=== PATIENT | female | born 1950 | race Caucasian/White ===

== ENCOUNTER 2016-07-12 20:19 | Observation (INO) ==
[2016-07-12 22:00] LABS: Basophils # 0.1 K/mcL (0.0-0.2); Basophils % 0.4 %; Eosinophils % 0.3 %; Hematocrit 49.4 % (35.3-44.9); Hemoglobin 16.6 g/dL (11.5-15.4); Immature Granulocytes % 0.3 % (0-4); Lymphocytes # 0.9 K/mcL (0.6-4.6); Lymphocytes % 7.8 %; Mean Corpuscular HGB Conc 33.6 g/dL (31.6-35.5); Mean Corpuscular Hemoglobin 28.2 pg (28.0-33.3); Mean Corpuscular Volume 83.9 fL (83.0-100.0); Mean Platelet Volume 10.4 fL (9.4-12.4); Monocytes # 0.6 K/mcL (0.0-1.3); Monocytes % 5.3 %; Neutrophils # 10.2 K/mcL (1.6-8.9); Platelet Count 184 K/mcL (140-400); Red Blood Count 5.89 M/mcL (3.82-4.97); Red Cell Distribution Width 13.1 % (11.5-14.5); Segmented Neutrophils % 85.9 %
[2016-07-12 22:12] LABS: Alanine Aminotransferase 31 Units/L (0-55); Albumin 4.3 g/dL (3.5-5.0); Albumin/Globulin Ratio 1.3 (1.1-2.2); Alkaline Phosphatase 78 Units/L (38-126); Aspartate Amino Transferase 28 Units/L (5-34); BUN/Creatinine Ratio 26 (6-26); Bilirubin,Direct 0.7 mg/dL (0.0-0.5); Bilirubin,Indirect 1.5 mg/dL (0.0-1.2); Bilirubin,Total 2.2 mg/dL (0.2-1.2); Blood Urea Nitrogen 22 mg/dL (7-20); Calcium 9.8 mg/dL (8.6-10.8); Carbon Dioxide 25 mEq/L (19-29); Chloride 104 mEq/L (98-109); Globulin 3.4 g/dL (2.4-3.5); Glucose 129 mg/dL (70-99); Lipase 23 Units/L (8-78); Osmolality,Calculated 295 (280-300); Sodium 140 mEq/L (136-145); Total Protein 7.7 g/dL (6.0-8.3); eGFR For African Americans > 60 (> 60); eGFR For Non-African Americans > 60 (> 60)
--- NOTE | 2016-07-12 22:22 | Emergency Department Note ---
Disposition Clinical Impression: Abdominal pain Qualifiers: Abdominal location: unspecified location Qualified Code(s): R10.9 - Unspecified abdominal pain Disposition: Still a Patient Referrals: Jana Barone CNP [Primary Care Provider] - Forms: Work/School Release, ED Satisfaction Letter Abdominal Pain HPI - General Chief Complaint: ED Abdominal Pain Stated Complaint: abdominal pain,vomiting Time Seen by Provider: 07/12/16 21:42 Source: patient Mode of arrival: ambulatory Limitations: no limitations Nursing Notes Reviewed: Yes Vital Signs Reviewed: Yes - History of Present Illness HPI Narrative: 66-year-old female who comes in complaining of severe epigastric pain radiating down into her abdomen. The patient states it started about 10 hours ago and is actually improving some now. Patient had a similar episode lasted about 4-5 hours about this 6 weeks ago. He was not evaluated for that. Pt Subjective Complaint: abdominal pain Onset (ago): hour(s) Consistency: constant Location: RUQ, LLQ Pain Severity: moderate, severe Pain Scale: 8 Quality: cramping, aching Radiation: none Migration to: no migration Improves with: nothing Worsens with: nothing - Related Data Home Medications Medication Instructions Recorded Confirmed Calcium Carbonate/Vitamin D3 1 tab PO DAILY 12/13/15 12/13/15 [Calcium 600 + Vit D Tablet] Lovastatin [Mevacor] 20 mg PO HS 12/13/15 12/13/15 Multivitamin [Multi-Day Vitamins] 1 tab PO DAILY 12/13/15 12/13/15 Vitamin E Acetate [Vitamin E] 400 unit PO DAILY 12/13/15 12/13/15 Allergies Allergy/AdvReac Type Severity Reaction Status Date / Time No Known Allergies Allergy Verified 07/12/16 21:00 Constitutional: Denies: fever, chills, weakness, weight change Eyes: Denies: eye pain, eye discharge, vision change ENT ED: Denies: ear pain, throat pain, dental pain, hearing loss, epistaxis, congestion, dysphagia Cardiovascular: Denies: chest pain, palpitations, dyspnea on exertion, edema, syncope Respiratory: Denies: cough, dyspnea, wheezes, hemoptysis, stridor Gastrointestinal: Reports: abdominal pain. Denies: nausea, vomiting, diarrhea, constipation, hematemesis, melena, hematochezia Genitourinary: Denies: dysuria, frequency, hematuria, discharge Musculoskeletal: Denies: back pain, neck pain, arthralgia, myalgia Integumentary: Denies: rash, abrasion, lesions Neurological: Denies: headache, weakness, numbness, paresthesias, confusion, abnormal gait, vertigo Psychiatric: Denies: anxiety, depression, suicidal thoughts, homicidal thoughts , auditory hallucinations, visual hallucinations Endocrine: Denies: fatigue Hematological/Lymphatic: Denies: easy bleeding, easy bruising Allergic/Immunologic: Denies: facial swelling, urticaria Abdominal Pain PMH - Past Medical History Medical history: Reports: cancer, hypertension, other Female Surgical History: Reports: hysterectomy, other Psychiatric history: Reports: no psych history - Social History Smoking status: Never smoker Alcohol use: Reports: none Drug use: Reports: none Physical Exam - General Limitations: no limitations General appearance: alert - Head Head exam: atraumatic, normocephalic, normal inspection - Eye Eye exam: Present: normal appearance, PERRL, EOMI - ENT ENT exam: normal exam, normal oropharynx, mucous membranes moist - Neck Neck exam: Present: normal inspection, full ROM, trachea midline - Chest Chest inspection: Present: normal inspection, symmetric chest wall rise - Respiratory Respiratory exam: Present: normal lung sounds bilaterally - Cardiovascular Cardiovascular exam: Present: regular rate, normal rhythm, normal heart sounds - Abdominal Exam Abdominal exam: Present: soft, tenderness. Absent: distention, guarding, rebound, rigidity, pulsatile mass Abdominal tenderness: Present: diffuse, mild - Extremities Exam Extremities exam: Present: normal inspection, full ROM. Absent: tenderness, pedal edema - Expanded Lower Extremity Exam Neurovascular/Tendon exam: Absent: motor deficit, sensory deficit, tendon deficit Gait: observed and normal - Back Exam Back exam: Present: normal inspection, full ROM. Absent: tenderness - Neurological Exam Neurological exam: Present: alert, oriented X3 - Psychiatric Psychiatric exam: Present: normal affect, normal mood - Skin Skin exam: Present: warm, dry, intact, normal color Course Vital Signs Temperature 98.4 F 07/12/16 20:55 Pulse Rate 86 07/12/16 20:55 Respiratory Rate 16 07/12/16 20:55 Blood Pressure 160/94 07/12/16 20:55 O2 Sat by Pulse Oximetry 93 07/12/16 20:55 Temperature 98.4 F 07/12/16 20:55 Pulse Rate 86 07/12/16 20:55 Respiratory Rate 16 07/12/16 20:55 Blood Pressure 160/94 07/12/16 20:55 O2 Sat by Pulse Oximetry 93 07/12/16 20:55 Oxygen Delivery Oxygen Delivery Room Air Abdominal Pain - Lab Data Result diagrams: 07/12/16 21:52 07/12/16 21:52 Lab Results 07/12/16 07/12/16 Range/Units 21:52 21:52 WBC 11.9 H (4.3-11.1) K/mcL RBC 5.89 H (3.82-4.97) M/mcL Hgb 16.6 H (11.5-15.4) g/dL Hct 49.4 H (35.3-44.9) % MCV 83.9 (83.0-100.0) fL MCH 28.2 (28.0-33.3) pg MCHC 33.6 (31.6-35.5) g/dL RDW 13.1 (11.5-14.5) % Plt Count 184 (140-400) K/mcL MPV 10.4 (9.4-12.4) fL Immature Gran % 0.3 (0-4) % Seg Neutrophils % 85.9 % Lymphocytes % 7.8 % Monocytes % 5.3 % Eosinophils % 0.3 % Basophils % 0.4 % Neutrophils # 10.2 H (1.6-8.9) K/mcL Lymphocytes # 0.9 (0.6-4.6) K/mcL Monocytes # 0.6 (0.0-1.3) K/mcL Eosinophils # 0.0 (0.0-0.6) K/mcL Basophils # 0.1 (0.0-0.2) K/mcL Sodium 140 (136-145) mEq/L Potassium 4.0 (3.5-4.5) mEq/L Chloride 104 (98-109) mEq/L Carbon Dioxide 25 (19-29) mEq/L BUN 22 H (7-20) mg/dL Creatinine 0.86 (0.57-1.11) mg/dL Est GFR ( Amer) > 60 (> 60) Est GFR (Non-Af Amer) > 60 (> 60) BUN/Creatinine Ratio 26 (6-26) Glucose 129 H (70-99) mg/dL Calculated Osmolality 295 (280-300) Calcium 9.8 (8.6-10.8) mg/dL Total Bilirubin 2.2 H (0.2-1.2) mg/dL Direct Bilirubin 0.7 H (0.0-0.5) mg/dL Indirect Bilirubin 1.5 H (0.0-1.2) mg/dL AST 28 (5-34) Units/L ALT 31 (0-55) Units/L Alkaline Phosphatase 78 (38-126) Units/L Serum Total Protein 7.7 (6.0-8.3) g/dL Albumin 4.3 (3.5-5.0) g/dL Globulin 3.4 (2.4-3.5) g/dL Albumin/Globulin Ratio 1.3 (1.1-2.2) Lipase 23 (8-78) Units/L S.B.A.R. - S.B.A.R. Recommendation: Recommendation based on pending studies, treatments, or consults S.B.A.R. Report Given to: Maxwell ArechigaBDannielleAAlyssia Repor Time: 23:00
[2016-07-12 22:28] LABS: Amylase 45 Units/L (25-125)
[2016-07-12 23:33] LABS: Bilirubin,Urine Negative (Negative); Blood,Urine Moderate (Negative); Clarity,Urine Cloudy (Clear); Color,Urine Yellow (Yellow); Glucose,Urine (UA) Normal (Normal); Ketones,Urine 40 mg/dL (Negative); Leukocyte Esterase,Urine Moderate (Negative); Nitrite,Urine Positive (Negative); Protein,Urine 30 mg/dL (Neg-Trace); Specific Gravity,Urine 1.022 (1.010-1.025); Urobilinogen,Urine Normal (Normal)
[2016-07-12 23:35] LABS: Bacteria,Urine Many per hpf (None-Few); Hyaline Casts,Urine Moderate per lpf (None-Few); Squamous Epithelial Cell,Urine Few per lpf (None-Few); WBC,Urine 15-30 per hpf (0-3)
[2016-07-12] MEDS ORDERED: Acetaminophen 325 MG TABLET PO ONE (23:37)
--- NOTE | 2016-07-12 23:47 | Emergency Department Note ---
Disposition Clinical Impression: Abdominal pain Qualifiers: Abdominal location: unspecified location Qualified Code(s): R10.9 - Unspecified abdominal pain Appendicitis Qualifiers: Appendicitis type: acute appendicitis Acute appendicitis type: unspecified acute appendicitis type Qualified Code(s): K35.80 - Unspecified acute appendicitis Disposition: Admitted As Inpatient Condition: Good Time of Disposition: 01:04 Abdominal Pain HPI - General Chief Complaint: ED Abdominal Pain Stated Complaint: abdominal pain,vomiting Time Seen by Provider: 07/12/16 21:42 Source: patient Mode of arrival: ambulatory - History of Present Illness Pt Subjective Complaint: abdominal pain Location: RUQ, LLQ Pain Severity: moderate, severe Pain Scale: 8 Quality: cramping, aching Migration to: no migration Improves with: nothing Worsens with: nothing - Related Data Home Medications Medication Instructions Recorded Confirmed Calcium Carbonate/Vitamin D3 1 tab PO DAILY 12/13/15 07/13/16 [Calcium 600 + Vit D Tablet] Lovastatin [Mevacor] 20 mg PO HS 12/13/15 07/13/16 Multivitamin [Multi-Day Vitamins] 1 tab PO DAILY 12/13/15 07/13/16 Vitamin E Acetate [Vitamin E] 400 unit PO DAILY 12/13/15 07/13/16 Allergies Allergy/AdvReac Type Severity Reaction Status Date / Time No Known Allergies Allergy Verified 07/12/16 21:00 Constitutional: Denies: fever, chills, weakness, weight change Eyes: Denies: eye pain, eye discharge, vision change ENT ED: Denies: ear pain, throat pain, dental pain, hearing loss, epistaxis, congestion, dysphagia Cardiovascular: Denies: chest pain, palpitations, dyspnea on exertion, edema, syncope Respiratory: Denies: cough, dyspnea, wheezes, hemoptysis, stridor Gastrointestinal: Reports: abdominal pain. Denies: nausea, vomiting, diarrhea, constipation, hematemesis, melena, hematochezia Genitourinary: Denies: dysuria, frequency, hematuria, discharge Musculoskeletal: Denies: back pain, neck pain, arthralgia, myalgia Integumentary: Denies: rash, abrasion, lesions Neurological: Denies: headache, weakness, numbness, paresthesias, confusion, abnormal gait, vertigo Psychiatric: Denies: anxiety, depression, suicidal thoughts, homicidal thoughts , auditory hallucinations, visual hallucinations Endocrine: Denies: fatigue Hematological/Lymphatic: Denies: easy bleeding, easy bruising Allergic/Immunologic: Denies: facial swelling, urticaria Abdominal Pain PMH - Past Medical History Medical history: Reports: cancer, hypertension, other Female Surgical History: Reports: hysterectomy, other Psychiatric history: Reports: no psych history - Social History Smoking status: Never smoker Alcohol use: Reports: none Drug use: Reports: none Physical Exam - General Limitations: no limitations General appearance: alert Course Course Narrative: Patient initially seen by [facility] provider Dr. Garcia. Please see his earlier documentation for details and combine charts. I did discuss patient with Dr. Garcia. Patient had resented with abdominal pain. Dr. Garcia had ordered CT with contrast. Per Dr. Garcia, patient's pain had been improving and she has declined analgesics. - Reevaluation(s) Reevaluation #1: Patient seen and examined. She is in no acute distress, does not look toxic. She states again that her abdominal pain She describes a dull headache which she relates is being caused by the stress and IV placement. She had requested Tylenol however patient currently nothing by mouth. She had declined IV analgesics. CT has been ordered and is pending. Vitals within normal limits. Time: 23:47 - Consultations Consultation #1: Patient was discussed with on-call surgeon Dr. Bianchi, who advised admit to service, IV fluids, analgesics and antiemetics. Time: 01:01 Vital Signs Temperature 98.4 F 07/12/16 20:55 Pulse Rate 86 07/12/16 20:55 Respiratory Rate 16 07/12/16 20:55 Blood Pressure 160/94 07/12/16 20:55 O2 Sat by Pulse Oximetry 93 07/12/16 20:55 Temperature 98.4 F 07/13/16 06:54 Pulse Rate 72 07/13/16 06:54 Respiratory Rate 16 07/13/16 06:54 Blood Pressure 136/77 07/13/16 06:54 O2 Sat by Pulse Oximetry 93 07/13/16 06:54 Oxygen Delivery Oxygen Delivery Room Air Abdominal Pain - Lab Data Lab results reviewed: Yes I reviewed the patient's lab results. Result diagrams: 07/12/16 21:52 07/12/16 21:52 Lab Results 05/24/17 05/24/17 05/24/17 Range/Units 21:52 21:52 23:27 WBC 11.9 H (4.3-11.1) K/mcL RBC 5.89 H (3.82-4.97) M/mcL Hgb 16.6 H (11.5-15.4) g/dL Hct 49.4 H (35.3-44.9) % MCV 83.9 (83.0-100.0) fL MCH 28.2 (28.0-33.3) pg MCHC 33.6 (31.6-35.5) g/dL RDW 13.1 (11.5-14.5) % Plt Count 184 (140-400) K/mcL MPV 10.4 (9.4-12.4) fL Immature Gran % 0.3 (0-4) % Seg Neutrophils % 85.9 % Lymphocytes % 7.8 % Monocytes % 5.3 % Eosinophils % 0.3 % Basophils % 0.4 % Neutrophils # 10.2 H (1.6-8.9) K/mcL Lymphocytes # 0.9 (0.6-4.6) K/mcL Monocytes # 0.6 (0.0-1.3) K/mcL Eosinophils # 0.0 (0.0-0.6) K/mcL Basophils # 0.1 (0.0-0.2) K/mcL Sodium 140 (136-145) mEq/L Potassium 4.0 (3.5-4.5) mEq/L Chloride 104 (98-109) mEq/L Carbon Dioxide 25 (19-29) mEq/L BUN 22 H (7-20) mg/dL Creatinine 0.86 (0.57-1.11) mg/dL Est GFR ( Amer) > 60 (> 60) Est GFR (Non-Af Amer) > 60 (> 60) BUN/Creatinine Ratio 26 (6-26) Glucose 129 H (70-99) mg/dL Calculated Osmolality 295 (280-300) Calcium 9.8 (8.6-10.8) mg/dL Total Bilirubin 2.2 H (0.2-1.2) mg/dL Direct Bilirubin 0.7 H (0.0-0.5) mg/dL Indirect Bilirubin 1.5 H (0.0-1.2) mg/dL AST 28 (5-34) Units/L ALT 31 (0-55) Units/L Alkaline Phosphatase 78 (38-126) Units/L Serum Total Protein 7.7 (6.0-8.3) g/dL Albumin 4.3 (3.5-5.0) g/dL Globulin 3.4 (2.4-3.5) g/dL Albumin/Globulin Ratio 1.3 (1.1-2.2) Amylase 45 (25-125) Units/L Lipase 23 (8-78) Units/L Urine Color Yellow (Yellow) Urine Clarity Cloudy A (Clear) Urine pH 6.0 (5.0-8.0) pH Units Ur Specific [place] 1.022 (1.010-1.025) Urine Protein 30 H (Neg-Trace) mg/dL Urine Glucose (UA) Normal (Normal) mg/dL Urine Ketones 40 H (Negative) mg/dL Urine Blood Moderate H (Negative) Urine Nitrite Positive A (Negative) Urine Bilirubin Negative (Negative) Urine Urobilinogen Normal (Normal) mg/dL Ur Leukocyte Esterase Moderate H (Negative) Urine Microscopic RBC 5-15 H (0-3) per hpf Urine Microscopic WBC 15-30 H (0-3) per hpf Ur Squamous Epith Cells Few (None-Few) per lpf Urine Bacteria Many H (None-Few) per hpf Hyaline Casts Moderate H (None-Few) per lpf Ur Culture Indicated? YES A (NO) - Radiology Data Radiology results reviewed: Yes I reviewed the patient's radiology results.
[2016-07-13] MEDS ORDERED: Ondansetron 4 MG/2 ML VIAL IVP PRN ×3 (01:01→16:16)
[2016-07-13] MEDS ORDERED: *HR* Morphine 2 MG/ML SYRINGE IVP PRN (01:01)
[2016-07-13] MEDS ORDERED: 0.9 % Sodium Chloride 1,000 ML IVC ONE (01:03)
[2016-07-13] MEDS ORDERED: *HR* HYDROmorphone (PF) 1 MG/ML SYRINGE IVP PRN ×3 (02:18→16:16)
[2016-07-13] MEDS ORDERED: 0.9 % Sodium Chloride 1,000 ML IVC SCH ×2 (02:30→16:16)
--- NOTE | 2016-07-13 08:00 | General Surg History&Physical ---
<Mariah Smith - Last Filed: 07/13/16 14:09> Date of Encounter: 07/13/16 Time of Encounter: 08:00 Assessment and Plan (1) Appendicitis Status: Acute The assessment and plan as outlined above was discussed with the patient and/or family members who expressed understanding and agreement. All questions were answered. Patient had sudden onset of mid epigastric pain 8/10 cramping sharp with radiation to the periumbilical area that began at noon yesterday 07/12/16 and did not begin to subside until around 9 PM last night. Associated symptoms include bloated sensation, decreased appetite, nausea, one episode of vomiting nonbilious nonbloody. No previous episodes. CT scan demonstrated acute non complicated appendicitis. Patient may decide to postpone surgery and try conservative therapy instead with oral antibiotics. Will give 2 rounds of IV antibiotics prior to discharge if patient decides to postpone and to DC with oral abx for conservative management. Abdomen/Pelvis CT 07/12/16 23:45 IMPRESSION: 1. Acute uncomplicated appendicitis. 2. Diffuse hepatic steatosis. 3. Chronic appearing L3 vertebral body compression fracture. 4. Hysterectomy. On exam: Patient is pleasant and alert. Abdominal exam minimal tenderness to palpation mid epigastric/periumbilical region patient describes 2 out of 10 pain significantly improved from time of admission, no peritoneal signs/rebound/ rigidity/guarding. Vital signs stable. Nonfocal neuro exam. Leukocytosis with white blood cells at 11.9, elevated H&H at 16.6/49.4, BUN 22. Liver function enzymes within normal limits/unremarkable. Plan: Nothing by mouth IV fluids at 75 mL per hour IV antibiotics- Cipro 400 IV Q 12hr; Supportive care and pain control Incentive spirometer every 1 hour while awake PPI therapy daily Risks, benefits, alternatives, expected outcomes reviewed with the patient is agreement to proceed to the operating room with Dr. BIANCHI for laparoscopic appendectomy in the next 24 hours. Qualifiers: Appendicitis type: acute appendicitis Acute appendicitis type: unspecified acute appendicitis type Qualified Code(s): K35.80 - Unspecified acute appendicitis History of Present Illness Chief complaint: abdominal pain HPI: Ms. Marroquin is a 66 year old female with a past medical history of hyperlipidemia who describes a sudden onset of mid epigastric pain 8/10 cramping sharp with radiation to the periumbilical area that began at noon yesterday 07/12/16 and did not begin to subside until around 9 PM last night. Associated symptoms include bloated sensation, decreased appetite, nausea, one episode of vomiting nonbilious nonbloody. No previous episodes. Patient states she called her son who drove her to the urgent care around 5:00 where they gave her 2 Zofran as to dissolve in her mouth which she promptly vomited. Patient was then transferred to the emergency department for further evaluation. Today patient states that her pain is minimal at 2 out of 10. Patient describes that she has a [facility] her [facility] tomorrow at 11:00. Her family and friends will be flying in from across the country and patient would very much like to be there for this event. Last bowel movement 6 PM yesterday evening without blood or pus. Last meal at 11:30 AM 07/12/16. Has had a few sips of water that she spit out but did not swallow last night. Abdominal surgeries: Bladder surgery approximately 6 years ago Hysterectomy 20 years ago. Past Med Surg Social Fam HX - Past Medical History Medical history: cancer, hypertension, other Psychiatric history: no psych history - Past Surgical History Surgical History: hysterectomy - Social History Smoking Status: Never smoker Smokeless Tobacco Status: No Alcohol use: none Drug use: none - Family History Father Living Status: Hx Family Cardiac Disorders: Yes (heart disease, [place]) Hx Family Endocrine Disorder: Yes (DM) Mother Living Status: Hx Family Cancer: Yes Medications and Allergies Calcium Carbonate/Vitamin D3 [Calcium 600 + Vit D Tablet] 1 tab PO DAILY [History] Lovastatin [Mevacor] 20 mg PO HS 12/13/15 [History] Multivitamin [Multi-Day Vitamins] 1 tab PO DAILY 12/13/15 [History] Vitamin E Acetate [Vitamin E] 400 unit PO DAILY 12/13/15 [History] Docusate [Colace] 100 mg PO BID #30 capsule 07/13/16 [Rx] HYDROcodone/Acet 5/325 mg [[place] 5-325 mg] 1 tab PO Q6H PRN #30 tab 07/13/16 [Rx ] Ibuprofen [Motrin] 600 mg PO Q6HR #50 tab 07/13/16 [Rx] Allergies No Known Allergies Allergy (Verified 07/12/16 21:00) Review of Systems All systems PM: A 10-system review of systems was performed and is negative for pertinent findings except as documented above in the HPI. - Constitutional anorexia, no chills, no fever(s) - EENT Nose, mouth and throat: no dysphagia, no mouth pain, no neck mass, no neck pain , no throat swelling, no tongue swelling, no vertigo - Cardiovascular no chest pain, no diaphoresis, no dyspnea, no edema, no palpitations - Respiratory no cough, no wheezing - Gastrointestinal abdominal pain, bloating, cramping, nausea, vomiting, no coffee ground emesis, no constipation, no diarrhea, no dysphagia, no heartburn, no hematemesis, no hematochezia, no melena, no tenesmus - Genitourinary Genitourinary: no urinary hesitancy, no urinary urgency - Musculoskeletal no muscle weakness, no numbness, no tingling - Integumentary no lesions, no new lesions, no pruritus, no rash, no swelling, no jaundice - Neurological no behavioral changes, no lack of coordination, no syncope - Psychiatric no confusion, no difficulty concentrating, no irritability - Endocrine no cold intolerance, no fatigue, no flushing, no heat intolerance, no palpitations, no polyuria - Hematologic/Lymphatic no easy bleeding, no easy bruising - Allergic/Immunologic no tongue swelling, no throat swelling, no wheezing General Surgery Exam Initial Vital Signs Temp Pulse Resp BP Pulse Ox 98.4 F 86 16 160/94 93 07/12/16 20:55 07/12/16 20:55 07/12/16 20:55 07/12/16 20:55 07/12/16 20:55 - General physical appearance well developed, well nourished, no distress, moderate pain (2/10). negative: jaundice - Eyes PERRL, normal ocular movement - ENT normal pinna, normal nares, normal mucosa - Neck trachea midline, no venous distension - Respiratory normal expansion, normal respiratory effort, clear to auscultation - Cardiovascular Cardiovascular exam: Present: RRR, no murmurs/rubs/gallops. Absent: JVD - Abdomen Abdomen general surgery: Present: bowel sounds present, soft, tender Abdominal Tenderness: Present: epigastic - Integumentary Integumentary general surgery: Present: warm and dry, no abnormal pigmentation. Absent: diaphoresis, rash - Neurologic Present: CN 2-12 grossly intact, normal coordination, normal sensation, deep tendon reflexes - Musculoskeletal Present: normal gait, normal posture - Psychiatric Psychiatric general surgery: Present: A&Ox3, appropriate, speech is normal, memory intact Results - Labs 07/12/16 21:52 07/12/16 21:52 Abnormal lab results WBC 11.9 K/mcL (4.3-11.1) H 07/12/16 21:52 RBC 5.89 M/mcL (3.82-4.97) H 07/12/16 21:52 Hgb 16.6 g/dL (11.5-15.4) H 07/12/16 21:52 Hct 49.4 % (35.3-44.9) H 07/12/16 21:52 Neutrophils # 10.2 K/mcL (1.6-8.9) H 07/12/16 21:52 BUN 22 mg/dL (7-20) H 07/12/16 21:52 Glucose 129 mg/dL (70-99) H 07/12/16 21:52 Total Bilirubin 2.2 mg/dL (0.2-1.2) H 07/12/16 21:52 Direct Bilirubin 0.7 mg/dL (0.0-0.5) H 07/12/16 21:52 Indirect Bilirubin 1.5 mg/dL (0.0-1.2) H 07/12/16 21:52 Urine Clarity Cloudy (Clear) A 07/12/16 23:27 Urine Protein 30 mg/dL (Neg-Trace) H 07/12/16 23:27 Urine Ketones 40 mg/dL (Negative) H 07/12/16 23:27 Urine Blood Moderate (Negative) H 07/12/16 23:27 Urine Nitrite Positive (Negative) A 07/12/16 23:27 Ur Leukocyte Esterase Moderate (Negative) H 07/12/16 23:27 Urine Microscopic RBC 5-15 per hpf (0-3) H 07/12/16 23:27 Urine Microscopic WBC 15-30 per hpf (0-3) H 07/12/16 23:27 Urine Bacteria Many per hpf (None-Few) H 07/12/16 23:27 Hyaline Casts Moderate per lpf (None-Few) H 07/12/16 23:27 Ur Culture Indicated? YES (NO) A 07/12/16 23:27 All other labs normal. - Imaging CT scan - abdomen: report reviewed, image reviewed CT scan - pelvis: report reviewed, image reviewed <Marin Bianchi E - Last Filed: 07/14/16 08:37> Date of Encounter: 07/14/16 Assessment and Plan (1) Appendicitis Status: Resolved The assessment and plan as outlined above was discussed with the patient and/or family members who expressed understanding and agreement. All questions were answered. The patient was seen with the resident. Her exam was consistent with right lower quadrant tenderness which correlated with the CT findings of appendicitis. We discussed the risks, benefits, and expected outcomes of conservative management with antibiotics versus surgery. She has elected to undergo surgery. We will plan to proceed to the operating room at the earliest convenience. Qualifiers: Appendicitis type: acute appendicitis Acute appendicitis type: unspecified acute appendicitis type Qualified Code(s): K35.80 - Unspecified acute appendicitis History of Present Illness HPI: Ms. Marroquin is a 66 year old female Review of Systems All systems PM: A 10-system review of systems was performed and is negative for pertinent findings except as documented above in the HPI. General Surgery Exam Initial Vital Signs Temp Pulse Resp BP Pulse Ox 98.4 F 86 16 160/94 93 07/12/16 20:55 07/12/16 20:55 07/12/16 20:55 07/12/16 20:55 07/12/16 20:55 Results - Labs 07/12/16 21:52 07/12/16 21:52 Abnormal lab results WBC 11.9 K/mcL (4.3-11.1) H 07/12/16 21:52 RBC 5.89 M/mcL (3.82-4.97) H 07/12/16 21:52 Hgb 16.6 g/dL (11.5-15.4) H 07/12/16 21:52 Hct 49.4 % (35.3-44.9) H 07/12/16 21:52 Neutrophils # 10.2 K/mcL (1.6-8.9) H 07/12/16 21:52 BUN 22 mg/dL (7-20) H 07/12/16 21:52 Glucose 129 mg/dL (70-99) H 07/12/16 21:52 Total Bilirubin 2.2 mg/dL (0.2-1.2) H 07/12/16 21:52 Direct Bilirubin 0.7 mg/dL (0.0-0.5) H 07/12/16 21:52 Indirect Bilirubin 1.5 mg/dL (0.0-1.2) H 07/12/16 21:52 Urine Clarity Cloudy (Clear) A 07/12/16 23: Urine Protein 30 mg/dL (Neg-Trace) H 07/12/16 23:27 Urine Ketones 40 mg/dL (Negative) H 07/12/16 23:27 Urine Blood Moderate (Negative) H 07/12/16 23:27 Urine Nitrite Positive (Negative) A 07/12/16 23:27 Ur Leukocyte Esterase Moderate (Negative) H 07/12/16 23:27 Urine Microscopic RBC 5-15 per hpf (0-3) H 07/12/16 23:27 Urine Microscopic WBC 15-30 per hpf (0-3) H 07/12/16 23:27 Urine Bacteria Many per hpf (None-Few) H 07/12/16 23:27 Hyaline Casts Moderate per lpf (None-Few) H 07/12/16 23:27 Ur Culture Indicated? YES (NO) A 07/12/16 23:27 All other labs normal.
[2016-07-13] MEDS ORDERED: MetroNIDAZOLE 500 MG/100 ML 500 MG/100 ML BAG IVPB SCH ×2 (10:00→18:00)
--- NOTE | 2016-07-13 12:58 | Anesthesia Evaluation PreOp ---
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: Denies Any Significant HX Other Medical History: Other (had skin cancer left ear) Anesthesia History: No Prior Anesthetic Complications, Past Anesthesia (JAQUAN) : No Alcohol Use: none Drug use: none Medications and Allergies Calcium Carbonate/Vitamin D3 [Calcium 600 + Vit D Tablet] 1 tab PO DAILY [History] Lovastatin [Mevacor] 20 mg PO HS 12/13/15 [History] Multivitamin [Multi-Day Vitamins] 1 tab PO DAILY 12/13/15 [History] Vitamin E Acetate [Vitamin E] 400 unit PO DAILY 12/13/15 [History] Allergies No Known Allergies Allergy (Verified 07/12/16 21:00) - Meds/Allergy Pre-op Review Medications Reviewed: Yes Allergies Reviewed: Yes Beta Blockers on Current Med List: No Anesthesia Results - Labs 07/12/16 21:52 07/12/16 21:52 Anesthesia Exam Selected Entries 07/13/16 10:51 Temperature 98.2 F Pulse Rate 77 Respiratory Rate 14 Blood Pressure 121/77 O2 Sat by Pulse Oximetry 93 Weight: 77kg NPO (# of Hours): >24 Pain Scale: 0 Pain Scale Used: Numeric (1 - 10) - HEENT Pupil (Motor): EOMI Mallampati: II Teeth: Normal Oral Opening: Greater than 3 - SPECIAL EDUCATION SCIENCE TEACHER LOC: Oriented SPECIAL EDUCATION SCIENCE TEACHER Motor: Normal RUE, Normal LUE, Normal RLE, Normal LLE, Normal Face SPECIAL EDUCATION SCIENCE TEACHER Sensory: Normal: RUE, LUE, RLE, LLE, Face - Cardiac Rhythm: Regular Murmur: None - Pulmonary Respiratory Effort: Symmetrical Anesthesia Assess/Plan ASA Score: 2 Modified Paterson Scale for Level of Consciousness: Cooperative, oriented, and tranquil Anesthetic Plan: General Monitoring Plan: Standard Monitors Recovery Plan: PACU (Discussed GA with patient questions answered and agrees to proceed.)
[2016-07-13] MEDS ORDERED: *HR* Midazolam HCl 2 MG/2 ML VIAL ONE (13:00)
[2016-07-13] MEDS ORDERED: *HR* Propofol 200 MG/20 ML VIAL IVP ONE ×2 (13:00→14:07)
[2016-07-13] MEDS ORDERED: *HR* FentaNYL (PF) 100 MCG/2 ML VIAL ONE (13:00)
[2016-07-13] MEDS ORDERED: Ondansetron 4 MG/2 ML VIAL ONE (13:02)
[2016-07-13] MEDS ORDERED: *HR* Succinylcholine 200 MG/10 ML VIAL IVP ONE (13:02)
[2016-07-13] MEDS ORDERED: *HR* Rocuronium Bromide 50 MG/5 ML VIAL ONE (13:02)
[2016-07-13] MEDS ORDERED: Lidocaine -MPF 2% 2 ML VIAL ONE (13:02)
[2016-07-13] MEDS ORDERED: Dexamethasone 4 MG/ML VIAL ONE ×3 (13:02→14:15)
[2016-07-13] MEDS ORDERED: CefOXitin 2,000 MG VIAL IVPB ONE (13:51)
[2016-07-13] MEDS ORDERED: EPHEDrine 50 MG/ML VIAL ONE (14:20)
[2016-07-13] MEDS ORDERED: Neostigmine Methylsulfate 3 MG/3 ML SYRINGE ONE (14:38)
--- NOTE | 2016-07-13 15:24 | Anesthesia Evaluation Post Op ---
Date of Encounter: 07/13/16 Time of Encounter: 15:24 - Lungs Lungs: Clear Ascult./Percussion - Airway Airway: Non-obstructed - Cardiovascular Regular Rate - Mental Status Mental Status: Alert & Oriented, Answers Appropriately - Pain Pain Scale: 0 Pain Scale used: Numeric (1 - 10) - Nausea Vomiting Nausea Vomiting: Not Present - Hydration Hydration: NPO, Has not voided - Discharge PostOp Status: Transfer Patient to floor
--- NOTE | 2016-07-13 15:53 | Operative Note ---
Date of procedure: 07/13/16 Pre-op diagnosis: appendicitis Post-op diagnosis: same Procedure: laparoscopic appendectomy Anesthesia: BAN Surgeon: Marin Bianchi Estimated blood loss (cc): 5 Specimen: Gallbladder Condition: stable Disposition: same day Procedure in Detail: After informed consent, patient was taken to the operating room placed in supine position. After adequate sedation anesthesia the abdomen was prepped and draped. A 12 mm cannula was placed in the umbilicus. A 5 mm cannulas placed in suprapubic region and the left lower quadrant. Camera was inserted and the abdomen after a pneumoperitoneum. 2 Myla graspers were used to identify the base of the appendix. A appendiceal window was created. A MEREDITH endoscopic stapler was placed across the base. A vascular load was placed across the mesoappendix. Once the appendix was was placed in an Endobag and removed through the umbilicus. The right lower quadrant was suctioned dry no bleeding was identified. Remainder the pneumoperitoneum was evacuated. The umbilicus was closed with an 0 Vicryl suture in [id number] fashion. Skin was closed with 4-0 Vicryl suture and Dermabond.
--- NOTE | 2016-07-13 15:55 | Discharge Summary ---
Date of Encounter: 07/13/16 Time of Encounter: 15:50 - Discharge Diagnosis (1) Appendicitis Priority: Primary Status: Resolved Qualifiers: Appendicitis type: acute appendicitis Acute appendicitis type: unspecified acute appendicitis type Qualified Code(s): K35.80 - Unspecified acute appendicitis - Discharge Medications Prescriptions: Ibuprofen [Motrin] 600 mg PO Q6HR #50 tab Docusate [Colace] 100 mg PO BID #30 capsule HYDROcodone/Acet 5/325 mg [Fork 5-325 mg] 1 tab PO Q6H PRN #30 tab PRN Reason: Pain Home Medications: Calcium Carbonate/Vitamin D3 [Calcium 600 + Vit D Tablet] 1 tab PO DAILY [History] Lovastatin [Mevacor] 20 mg PO HS 12/13/15 [History] Multivitamin [Multi-Day Vitamins] 1 tab PO DAILY 12/13/15 [History] Vitamin E Acetate [Vitamin E] 400 unit PO DAILY 12/13/15 [History] Docusate [Colace] 100 mg PO BID #30 capsule 07/13/16 [Rx] HYDROcodone/Acet 5/325 mg [Fork 5-325 mg] 1 tab PO Q6H PRN #30 tab 07/13/16 [Rx ] Ibuprofen [Motrin] 600 mg PO Q6HR #50 tab 07/13/16 [Rx] Allergies/Adverse Reactions: Allergies No Known Allergies Allergy (Verified 07/12/16 21:00) General Surgery Exam Initial Vital Signs Temp Pulse Resp BP Pulse Ox 98.4 F 86 16 160/94 93 07/12/16 20:55 07/12/16 20:55 07/12/16 20:55 07/12/16 20:55 07/12/16 20:55 Date of admission: 07/13/16 01:11 Primary care physician: Jana Barone CNP Discharging clinician: Marin Medeiros) Anticipated date of discharge: 07/13/16 - Patient Status Disposition: Home, Self-Care Condition: Good Functional capacity at discharge: independent ambulation Overall status at discharge: patient is progressing back to baseline - Discharge Instructions Follow Up With: Jana Barone CNP [Primary Care Provider] - (1 week hospital follow-up) Sheree Medeiros CNP [Advanced Practice Nurse] - 07/31/16 10:15 am (Surgery follow-up) Additional Instructions: #1 may shower, no tub bath for 2 weeks #2 wash incisions with soap and water and pat dry daily #3 no lifting, pushing, pulling more than 15 pounds for the next 2 weeks #4 no driving until off narcotics for 24 hours and able to safely react in the car #5 may climb stairs - Diet and Activity Activity: other (See additional instructions above) Diet: advance to your usual diet - Hospital Course Hospital course: Ms. Marroquin is a 66 year old female who presented to the hospital with complaints of abdominal discomfort. She was found to have radiologic evidence of acute appendicitis. She was taken to the operating room for a laparoscopic appendectomy with Dr. Bianchi. She was started on IV antibiotic therapy. We will begin discharge planning to home when the patient meets discharge criteria including vital signs are stable and afebrile, tolerating liquids without nausea or vomiting, pain is well controlled, voiding and ambulating without difficulty. We will plan for outpatient follow-up in the next 10-14 days. - Time Spent with Patient Total time spent providing and/or coordinating discharge services: Less than 30 minutes - Attending Attestation I examined this patient and my medical decision-making was reviewed with the SUGAR CHIPPER MACHINE OPERATOR/PA/Advanced Practice Nurse/Resident Physician. I agree with the documented findings, disposition and treatment plan as described except to the extent set forth below.
[2016-07-13] MEDS ORDERED: *HR* HYDROcodone/Acet 5/325 mg TABLET PO PRN ×2 (16:07→16:16)
[2016-07-13] MEDS ORDERED: Acetaminophen 325 MG TABLET PO PRN ×2 (16:09→16:16)
[2016-07-13 19:08] VITALS: BP 120/78
== END 2016-07-13 20:37 | disposition home or self-care (01) ==
LOC: 3BNU 20:19 → EMEROO 20:19 → 3BNU 07-13 01:46
PROVIDERS: ADMIT Nurse Practitioner Family; ATTEND Surgery

== ENCOUNTER 2017-11-27 16:08 | Observation (INO) ==
[2017-11-27 16:39] LABS: Basophils # 0.1 K/mcL (0.0-0.2); Basophils % 0.9 %; Eosinophils # 0.1 K/mcL (0.0-0.6); Eosinophils % 2.1 %; Hematocrit 44.1 % (35.3-44.9); Hemoglobin 15.2 g/dL (11.5-15.4); Immature Granulocytes % 0.2 % (0-4); Lymphocytes # 1.6 K/mcL (0.6-4.6); Lymphocytes % 31.1 %; Mean Corpuscular HGB Conc 34.5 g/dL (31.6-35.5); Mean Corpuscular Hemoglobin 29.2 pg (28.0-33.3); Mean Corpuscular Volume 84.6 fL (83.0-100.0); Mean Platelet Volume 10.7 fL (9.4-12.4); Monocytes # 0.7 K/mcL (0.0-1.3); Monocytes % 12.7 %; Neutrophils # 2.8 K/mcL (1.6-8.9); Platelet Count 151 K/mcL (140-400); Red Blood Count 5.21 M/mcL (3.82-4.97); Red Cell Distribution Width 13.2 % (11.5-14.5)
--- NOTE | 2017-11-27 16:40 | Emergency Department Note ---
Disposition Clinical Impression: Chest pain Qualifiers: Chest pain type: unspecified Qualified Code(s): R07.9 - Chest pain, unspecified Disposition: Admitted As Inpatient Condition: Good Chest Pain HPI - General Chief Complaint: ED Chest Pain Stated Complaint: CP/Tachycardia Time Seen by Provider: 11/27/17 16:14 Source: patient Limitations: no limitations Vital Signs Reviewed: Yes Nursing Notes Reviewed: Yes - History of Present Illness HPI Narrative: Patient with no past medical history of heart disease but history of arthritis presenting today for evaluation of what she describes as palpitations. She feels like her heart is racing. Started 2 hours ago while she was doing outdoor activities. The patient heart rate on the monitor is 90 and does not show any ST elevations or depressions on EKG. Patient is experiencing the pain while she is in front of me. She is not having fasciculations or any report to us for pain. She states she does not feel pain but that she feels as if the heart is racing. She does not describe any pressure or aches or tingling. Patient denies all chest pain symptoms on my evaluation. She did have previous cardiac evaluation she says several years ago. She states that her stress test was normal. The patient has otherwise been in good health and is very active for age. Severity scale (1-10): 2 - Related Data Home Medications Medication Instructions Recorded Confirmed Lovastatin [Mevacor] 20 mg PO HS 11/27/17 11/27/17 Allergies Allergy/AdvReac Type Severity Reaction Status Date / Time No Known Allergies Allergy Verified 10/10/16 08:31 All systems ED: reviewed and negative except as stated. Constitutional: Denies: fever, chills ENT ED: Denies: congestion Cardiovascular: Reports: palpitations. Denies: chest pain, dyspnea on exertion Respiratory: Denies: cough, dyspnea Gastrointestinal: Denies: abdominal pain, nausea Genitourinary: Denies: urgency Musculoskeletal: Denies: back pain, neck pain Integumentary: Denies: rash, abrasion Neurological: Denies: headache Chest Pain PMH - Past Medical History Medical history: Reports: cancer, hypertension Surgical history: Reports: appendectomy, hysterectomy Psychiatric history: Reports: no psych history - Social History Smoking Status: Never smoker Alcohol use: Reports: none Drug use: Reports: none Physical Exam General: Well appearing, nontoxic, no acute distress Head: Normocephalic Atraumatic Eyes: PERRL, EOMI ENT: Airway patent, no stridor Neck: supple, no meningismus Chest: Lungs clear to auscultation bilateral Cardiac: Regular rate and rhythm, no murmurs, rubs or gallops Abdomen: soft, nontender, nondistended; no guarding, rebound, or tenderness to percussion Musculoskeletal: Calves symmetric, nontender, no palpable cord Skin: No rash, normal skin tone Neuro: Alert and Oriented to person, place, and time; No focal deficit - General Limitations: no limitations General appearance: alert Course - Reevaluation(s) Reevaluation #1: Patient initial evaluation with EKG troponin are negative. I have gone back into further evaluate the patient get more history as I have read the nurse's notes and she has multiple descriptions of her chest pain. She describes chest pain on one occasion as a dullness to the center of her chest. I gone back to ask her about this and she states that she can better describe it as a lump that feels like his behind her sternum. Patient states it is not better or worse with food. Is not better was walking there is no other. She states that she cannot further describe her sensation. The episodes of tachycardia or palpitations in the room were associated with sinus rhythm in the mid 80s. There is no PACs no PVCs. The sensation that she was feeling was not fasciculations within her chest either. She does not have tenderness to palpation throughout her chest and cannot replicate her chest pain on exam. The sensation is somewhat nebulous. I do not have a better way to describe what she is sensing. She does have a history of hypercholesterolemia. She does have a family history of heart disease. She is never undergone any stress testing or other cardiac workup. Patient did have symptoms have now or prior to arrival. She will receive repeat troponin testing as well as cardiac rule out within the hospital system. Patient has been excepted by the hospitalist. - Consultations Consultation #1: Discussed with hospitalist. Patient accepted for admission Vital Signs Temperature 97.9 F 11/27/17 16:11 Pulse Rate 98 11/27/17 16:11 Respiratory Rate 16 11/27/17 16:11 Blood Pressure 117/64 11/27/17 16:11 O2 Sat by Pulse Oximetry 94 11/27/17 16:11 Temperature 97.9 F 10/09/18 16:20 Pulse Rate 82 11/27/17 19:37 Respiratory Rate 16 11/27/17 19:37 Blood Pressure 158/95 11/27/17 19:37 O2 Sat by Pulse Oximetry 96 11/27/17 19:37 Oxygen Delivery Oxygen Delivery Room Air Chest Pain - Medical Records Medical records reviewed: Yes I reviewed the patient's medical records. - Lab Data Lab results reviewed: Yes I reviewed the patient's lab results. Result diagrams: 11/27/17 16:27 11/27/17 16:27 Lab Results 11/27/17 11/27/17 Range/Units 16:27 16:27 WBC 5.3 (4.3-11.1) K/mcL RBC 5.21 H (3.82-4.97) M/mcL Hgb 15.2 (11.5-15.4) g/dL Hct 44.1 (35.3-44.9) % MCV 84.6 (83.0-100.0) fL MCH 29.2 (28.0-33.3) pg MCHC 34.5 (31.6-35.5) g/dL RDW 13.2 (11.5-14.5) % Plt Count 151 (140-400) K/mcL MPV 10.7 (9.4-12.4) fL Immature Gran % 0.2 (0-4) % Seg Neutrophils % 53.0 % Lymphocytes % 31.1 % Monocytes % 12.7 % Eosinophils % 2.1 % Basophils % 0.9 % Neutrophils # 2.8 (1.6-8.9) K/mcL Lymphocytes # 1.6 (0.6-4.6) K/mcL Monocytes # 0.7 (0.0-1.3) K/mcL Eosinophils # 0.1 (0.0-0.6) K/mcL Basophils # 0.1 (0.0-0.2) K/mcL Sodium 141 (136-145) mEq/L Potassium 3.6 (3.5-5.1) mEq/L Chloride 108 H (98-107) mEq/L Carbon Dioxide 24 (23-29) mEq/L BUN 28 H (8-23) mg/dL Creatinine 0.95 (0.60-1.20) mg/dL Est GFR ( Amer) > 60 (> 60) Est GFR (Non-Af Amer) 58 L (> 60) BUN/Creatinine Ratio 29 H (6-26) Glucose 162 H (70-105) mg/dL Calculated Osmolality 301 H (280-300) Calcium 9.5 (8.6-10.3) mg/dL Magnesium 2.2 (1.6-2.6) mg/dL Troponin I < 0.03 (< 0.04) ng/mL TSH 2.038 (0.340-5.600) mcIU/mL - Radiology Data Radiology results reviewed: Yes I reviewed the patient's radiology results. - EKG Data EKG attestation: Yes I reviewed and interpreted this EKG. EKG results narrative: EKG shows sinus rhythm with heart rate of 90. WV interval 185. QTC 443 patient. Has no significant ST elevations or depressions.
[2017-11-27 17:07] LABS: Troponin I < 0.03 ng/mL (< 0.04)
[2017-11-27 17:10] LABS: BUN/Creatinine Ratio 29 (6-26); Blood Urea Nitrogen 28 mg/dL (8-23); Calcium 9.5 mg/dL (8.6-10.3); Carbon Dioxide 24 mEq/L (23-29); Chloride 108 mEq/L (98-107); Glucose 162 mg/dL (70-105); Magnesium 2.2 mg/dL (1.6-2.6); Osmolality,Calculated 301 (280-300); Potassium 3.6 mEq/L (3.5-5.1); Sodium 141 mEq/L (136-145); eGFR For Non-African Americans 58 (> 60)
[2017-11-27 17:21] LABS: Thyroid Stimulating Hormone 2.038 mcIU/mL (0.340-5.600)
[2017-11-27] MEDS ORDERED: Aspirin 325 MG TABLET PO STA (18:52)
[2017-11-27] MEDS ORDERED: Naloxone 0.4 MG/ML INJ IVP PRN (19:46)
[2017-11-27] MEDS ORDERED: Nitroglycerin 0.4 MG TAB.SUBL SL PRN (19:49)
--- NOTE | 2017-11-27 23:54 | Internal Med History&Physical ---
<Zoila Jules - Last Filed: 11/28/17 06:13> Date of Encounter: 11/28/17 Time of Encounter: 23:30 Internal Medicine - H&P: HPI Chief complaint: heart palpitations Admitted From: Home Plans for Post Hospital Care: Home History of present illness: Ms. Marroquin is a 67 year old female with PMH of hyperlipidemia and hypertension who presented to the emergency department for c/o heart racing and palpitations after working outside today. She is normally active and states her heart rate usually increases while working outdoors, but returns to normal after rest-- today was unusual because her symptoms lasted for 5 hours after she'd stopped working; the palpitations went away on their own. This hasn't happened to her in the past. She states she did not overexert herself today and was eating and drinking normally today. Nothing made the palpitations better or worse and there is nothing she could do to reproduce the sensation. She denies fevers, chills, lightheadedness, confusion, nausea, vomiting, diaphoresis, chest pain, dyspnea, abdominal pain, nausea, vomiting, diarrhea, constipation, or difficulty walking. She did not have pain radiating into her neck, jaw, or down either upper extremity. Her children encouraged her to be evaluated at the hospital. At the time of my interview, she was asymptomatic. She denies any personal heart history, including MS or arrhythmia, but states her father from a heart attack. She reports an episode 6 years ago of hypertension on the day of her colonoscopy, but her BP improved on its own and colonoscopy proceeded without incident--she followed up with a electrical lineworker afterwords and wore a holter monitor for a few days, but reports the results came back normal. In the emergency department, her workup included a CXR negative for acute cardiopulmonary processes to explain her palpitations, TSH was within normal limits, troponins negative x 2, CBC unremarkable, and metabolic panel unremarkable. EKG shows sinus rhythm, normal intervals, and no evidence of acute ischemia. She was admitted to hospitalist service for further evaluation and care. Past Med Surg Social Fam HX - Past Medical History Medical history: arthritis, cancer, hypertension Additional medical history: skin cancer Psychiatric history: no psych history - Past Surgical History Surgical History: appendectomy, hysterectomy Additional surgical history: colonoscopy,bladder,skin cancer - Social History Smoking Status: Never smoker Smokeless Tobacco Status: No Alcohol use: none Drug use: none - Family History Father Name: Osvaldo Living Status: Age at : 68 Cause of : MS Hx Family Cardiac Disorders: Yes (heart disease, MS) Hx Family Endocrine Disorder: Yes (DM) Mother Name: Klaus Living Status: Age at : 82 Cause of : liver cancer Hx Family Cancer: Yes Internal Medicine - H&P: Meds Lovastatin [Mevacor] 20 mg PO HS 11/27/17 [History] 3 Allergy/AdvReac Type Severity Reaction Status Date / Time No Known Allergies Allergy Verified 10/10/16 08:31 All Systems PM: A 10-system review of systems was performed and is negative for pertinent findings except as documented above in the HPI. - Constitutional Constitutional: as per HPI, no chills, no fever(s), no weakness - Cardiovascular Cardiovascular ROS IM: as per HPI, no chest pain, no diaphoresis, no dyspnea, no edema, no lightheadedness, no syncope - Respiratory Respiratory: no cough, no dyspnea, no wheezing - Gastrointestinal Gastrointestinal: vomiting, no abdominal pain, no constipation, no diarrhea, no nausea - Neurological Neurological ROS: as per HPI, no confusion, no disequilibrium, no dizziness, no headache(s), no memory loss, no numbness, no tingling, no weakness - Constitutional Vitals: Temp Pulse Resp BP Pulse Ox 97.9 F 76 18 125/77 93 11/27/17 21:06 11/27/17 21:06 11/27/17 21:06 11/27/17 21:06 11/27/17 21:06 General appearance: Present: A&O X 3, pleasant, no acute distress, answers questions appropriately Exam: . - Head Head exam: Present: atraumatic, normocephalic - Eye Eye exam: Present: normal appearance, PERRL, sclera anicteric Pupils: Present: PERRL - Neck Neck exam general surgery: Present: supple, trachea midline - Respiratory Respiratory exam: Present: CTAB. Absent: rales, rhonchi, wheezes - Cardiovascular Cardiovascular exam: Present: RRR, +S1, +S2. Absent: distant heart sounds, gallop, rubs, systolic murmur - GI/Abdominal GI/Abdominal exam: Present: soft. Absent: distended, guarding, rebound, rigid, tenderness - Extremities Exam Extremities exam: Present: full ROM, normal inspection, warm, radial pulses palpable and symmetrical. Absent: pedal edema, tenderness - Neurological Exam Neurological exam: Present: alert, CN II-XII intact, oriented X3, no focal deficits, strengths equal and symetr throughout - Psychiatric Psychiatric exam: Present: normal affect, normal mood - Skin Skin exam: Present: dry, intact, normal color, warm Internal Med - H&P Results - Labs CBC & Chem 7: 11/27/17 16:27 11/27/17 16:27 Labs: Cardiac Enzymes 11/27/17 Range/Units 22:03 Troponin I < 0.03 (< 0.04) ng/mL - Assessment and plan (1) Heart palpitations Current Visit: Yes Status: Acute Assessment and plan: Unclear etiology Asymptomatic currently HR 76 bpm Metabolic panel unremarkable and TSH within normal limits - Echocardiogram in morning to evaluate for structural causes - Repeat metabolic panel in morning - Continuous cardiac monitoring - Consider outpatient holter monitor - Consider cardiology consult (2) Hyperlipidemia Current Visit: Yes Status: Chronic Assessment and plan: Continue home med lovastatin 20 mg PO QD Qualifiers: Hyperlipidemia type: unspecified Qualified Code(s): E78.5 - Hyperlipidemia , unspecified (3) DVT prophylaxis Current Visit: Yes Status: Acute Assessment and plan: Heparin 5,000 units SubQ Q12H (4) Hyperglycemia Current Visit: Yes Status: Acute Assessment and plan: Glucose 162 on initial labs Denies h/o DM - Continue to monitor - Time Spent With Patient Total time spent is greater than 50% in coordination of care (as documented) at patient's floor/unit and/or counseling patient: <Tessy Zeng - Last Filed: 11/28/17 08:08> Date of Encounter: 11/28/17 Internal Medicine - H&P: HPI History of present illness: Ms. Marroquin is a 67 year old female All Systems PM: A 10-system review of systems was performed and is negative for pertinent findings except as documented above in the HPI. - Constitutional Vitals: Temp Pulse Resp BP Pulse Ox 98.3 F 65 18 145/88 92 11/28/17 07:20 11/28/17 07:20 11/28/17 07:20 11/28/17 07:20 11/28/17 07:20 Internal Med - H&P Results - Labs CBC & Chem 7: 11/27/17 16:27 11/27/17 16:27 Labs: Cardiac Enzymes 11/27/17 Range/Units 22:03 Troponin I < 0.03 (< 0.04) ng/mL - Assessment and plan (1) Heart palpitations Current Visit: Yes Status: Acute (2) Hyperlipidemia Current Visit: Yes Status: Chronic Qualifiers: Hyperlipidemia type: unspecified Qualified Code(s): E78.5 - Hyperlipidemia , unspecified (3) DVT prophylaxis Current Visit: Yes Status: Acute (4) Hyperglycemia Current Visit: Yes Status: Acute - Time Spent With Patient Total time spent is greater than 50% in coordination of care (as documented) at patient's floor/unit and/or counseling patient: - Attending Attestation Patient seen and examined case discussed with resident. Agree with assessment and plan. We will continue telemetry for patient's reported palpitations. We will obtain echocardiogram to rule out any valvular etiology for current presentation.
[2017-11-28] MEDS ORDERED: *HR* Heparin 5,000 UNIT/ML VIAL SQ SCH (06:00)
[2017-11-28 07:21] VITALS: BP 145/88
[2017-11-28 08:18] LABS: Basophils # 0.1 K/mcL (0.0-0.2); Basophils % 1.2 %; Eosinophils # 0.1 K/mcL (0.0-0.6); Eosinophils % 3.4 %; Hematocrit 45.5 % (35.3-44.9); Hemoglobin 15.6 g/dL (11.5-15.4); Immature Granulocytes % 0.2 % (0-4); Lymphocytes # 1.6 K/mcL (0.6-4.6); Lymphocytes % 37.4 %; Mean Corpuscular HGB Conc 34.3 g/dL (31.6-35.5); Mean Corpuscular Hemoglobin 29.2 pg (28.0-33.3); Mean Platelet Volume 11.1 fL (9.4-12.4); Monocytes # 0.6 K/mcL (0.0-1.3); Monocytes % 14.1 %; Neutrophils # 1.8 K/mcL (1.6-8.9); Platelet Count 137 K/mcL (140-400); Red Blood Count 5.35 M/mcL (3.82-4.97); Red Cell Distribution Width 13.2 % (11.5-14.5); Segmented Neutrophils % 43.7 %
[2017-11-28 08:42] LABS: Troponin I < 0.03 ng/mL (< 0.04)
[2017-11-28 08:43] LABS: Alanine Aminotransferase 30 Units/L (7-52); Albumin 3.9 g/dL (3.5-5.7); Alkaline Phosphatase 64 Units/L (34-104); Aspartate Amino Transferase 27 Units/L (13-39); BUN/Creatinine Ratio 29 (6-26); Bilirubin,Total 1.5 mg/dL (0.3-1.0); Blood Urea Nitrogen 23 mg/dL (8-23); Calcium 9.1 mg/dL (8.6-10.3); Carbon Dioxide 25 mEq/L (23-29); Chloride 111 mEq/L (98-107); Glucose 100 mg/dL (70-105); Magnesium 2.2 mg/dL (1.6-2.6); Osmolality,Calculated 298 (280-300); Potassium 4.1 mEq/L (3.5-5.1); Sodium 142 mEq/L (136-145); Total Protein 5.9 g/dL (6.4-8.9); eGFR For Non-African Americans > 60 (> 60)
--- NOTE | 2017-11-28 10:41 | Discharge Summary ---
- NOTES TO OUTPATIENT PROVIDER Notes to Outpatient Provider: Recommended to make an appointment to see a cloth painter within 1-2 weeks of hospital discharge. Orders not resulted at time of discharge: Pending orders 11/27/17 22:59 EKG [ECG 12 lead ECG] [ECG] Routine 11/27/17 23:59 EV echocardiogram Routine Date of Encounter: 11/28/17 Time of Encounter: 10:39 - Discharge Diagnosis (1) Heart palpitations Priority: Primary Status: Resolved (2) Hyperlipidemia Priority: Secondary Status: Chronic Qualifiers: Hyperlipidemia type: unspecified Qualified Code(s): E78.5 - Hyperlipidemia , unspecified (3) DVT prophylaxis Priority: Secondary Status: Acute (4) Hyperglycemia Priority: Secondary Status: Acute Hospital course: Ms. Marroquin is a 67 year old female PMH of hyperlipidemia and hypertension who presented to the emergency department for c/o heart racing and palpitations after working outside. Palpitations did not resolved with rest as it had happened in the past when she experienced palpitations for which she decided to come to the ED. Work up negative for ischemia, EKG with sinus rythm, no ischemic changes, HR of 90s. TSH within normal limits. Palpitations resolved, patient hemodynamically stable to be discharged home. Patient reported that about 6 years ago she wore a Holter monitor and everything came back within normal. Patient recommended to see a cloth painter as outpatient for further evaluation. - Time Spent with Patient Total time spent providing and/or coordinating discharge services: Less than 30 minutes - Discharge Medications Home Medications: Lovastatin [Mevacor] 20 mg PO HS 11/27/17 [History] Allergies/Adverse Reactions: 3 Allergy/AdvReac Type Severity Reaction Status Date / Time No Known Allergies Allergy Verified 10/10/16 08:31 Date of admission: 11/27/17 19:43 Primary care physician: Jana Barone CNP - Constitutional Vitals: Temp Pulse Resp BP Pulse Ox 98.3 F 65 18 145/88 92 11/28/17 07:20 11/28/17 07:20 11/28/17 07:20 11/28/17 07:20 11/28/17 07:20 General appearance: Present: A&O X 3, pleasant, no acute distress, answers questions appropriately Exam: General: Patient is alert, oriented, no acute distress, speaks in full sentences Head: atraumatic, normocephalic, Eye: normal appearance, PERRL, no scleral icterus, no conjunctival injection ENT: mucous membranes moist, normal external ear exam Neck: normal inspection, trachea midline, full ROM, no carotid bruits Respiratory: Good respiratory effort. Clear to auscultation bilaterally, no rales, wheezing or crackles. Cardiovascular: RRR, normal s1 and s2, No rubs, gallops, or murmors. Abdomen: Bowel sounds present normoactive x-4 quadrants. Abdomen is soft, nondistended. No guarding or rebound. No organomegaly noted, obese musculoskeletal: Spontaneously moving all extremities. no edema, no calf tenderness Skin: warm, dry, intact. Neuro: Alert and oriented x4. Cranial nerves 2-12 is intact. Psych: Patient's affect is normal - Patient Status Disposition: Home, Self-Care Condition: Good Functional capacity at discharge: independent ambulation Overall status at discharge: patient is back to baseline - Discharge Instructions Follow Up With: Jana Barone CNP [Primary Care Provider] - 12/04/17 10:35 am - Diet and Activity Activity: resume usual activities as tolerated Diet: advance to your usual diet, low salt diet
--- NOTE | 2017-12-02 16:59 | Electrocardiograph Report ---
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
== END 2017-11-28 11:33 | disposition home or self-care (01) ==
LOC: EMEROOARM 16:08 → 3BNU 16:08 → SUATTDRO 19:43 → 3BNU 20:50
PROVIDERS: ADMIT Internal Medicine; ATTEND Internal Medicine